=== PATIENT | female | born 1990 | race Caucasian/White ===

== ENCOUNTER 2017-02-23 11:09 | Emergency (ER) | payer OTHER ==
[~2017-02-23] VITALS: Ht 175.3 cm; Wt 136.8 kg
[2017-02-23] MEDS ORDERED: KETOROLAC10 MG PO (13:18)
[2017-02-23 13:31] VITALS: BP 143/79
== END 2017-02-23 13:31 | disposition home or self-care (01) ==
LOC: ED 11:09
DX: M94.0 Chondrocostal junction syndrome [Tietze] (principal); R07.89 Other chest pain; R06.02 Shortness of breath